=== PATIENT | female | born 1955 | race Caucasian/White ===

== ENCOUNTER 2018-07-07 17:27 | Emergency (ER) | payer BC, MEDICARE ==
--- NOTE | 2018-07-07 18:06 | Emergency Department Record ---
History of Present Illness - General Mode of Arrival: Ambulatory - History of Present Illness Onset/Timin -: Hour(s) Location: Face Place: Home Context: Accidental Associated Symptoms: None Treatments Prior to Arrival: Bandage - [place] Coma Scale Eye Response: (4) Open spontaneously Motor Response: (6) Obeys commands Verbal Response: (5) Oriented [place] Total: 15 - Related Data Patient Tetanus UTD (within 5 yrs): No <Jensen Campos - Last Filed: 07/07/18 18:04> - General Source: Patient Mode of Arrival: Ambulatory Limitations: No limitations - History of Present Illness Initial Commments: 63 yo female presents to ED for evaluation following a fall from a ladder, reports "I missed a step". Patient reports that she struck her head on a rung of the ladder resulting in a forehead laceration. Patient denies other injury on examination, and denies the use of anticoagulation medications. Patient denies neck injury, numbness, tingling, chest, abdomen, or back injury on examination. Patient denies health problems other than belepharospasms. -: Hour(s) Location: Face Place: Home Context: Accidental Associated Symptoms: None Treatments Prior to Arrival: Bandage - [place] Coma Scale Eye Response: (4) Open spontaneously Motor Response: (6) Obeys commands Verbal Response: (5) Oriented [place] Total: 15 <SHARAD BOATENG - Last Filed: 07/07/18 20:48> - General Chief Complaint: Laceration(s) Stated Complaint: LAC HEAD Time Seen by Provider: 07/07/18 17:54 - Related Data Home Medications Medication Instructions Recorded Confirmed Last Taken No Home Med [NO HOME MEDS] 07/07/18 07/07/18 Unknown Allergies Allergy/AdvReac Type Severity Reaction Status Date / Time No Known Drug Allergies Allergy Verified 07/07/18 17:47 Travel Screening - Travel/Exposure Within Last 30 Days Have you traveled within the last 30 days?: No - Travel/Exposure Within Last Year Have you traveled outside the [place] in the last year?: No - Additonal Travel Details Have you been exposed to anyone with a communicable illness?: No - Travel Symptoms Symptom Screening: None <Jensen Campos - Last Filed: 07/07/18 18:04> Review of Systems Constitutional: Denies: Chills, Fever, Malaise, Night sweats Eyes: Denies: Eye discharge, Eye pain ENT: Denies: Congestion, Ear pain, Epistaxis Respiratory: Denies: Cough, Dyspnea Cardiovascular: Denies: Chest pain, Dyspnea on exertion Endocrine: Denies: Fatigue, Heat or cold intolerance Gastrointestinal: Denies: Abdominal pain, Nausea, Vomiting Genitourinary: Denies: Incontinence, Retention Musculoskeletal: Denies: Arthralgia, Back pain, Gout, Joint swelling Skin: Denies: Bruising, Change in color Neurological: Reports: Headache. Denies: Abnormal gait, Confusion, Tingling Psychiatric: Denies: Anxiety Hematological/Lymphatic: Denies: Anemia, Blood Clots <SHARAD BOATENG - Last Filed: 07/07/18 20:48> Past Medical History - SOCIAL HISTORY Smoking Status: Current every day smoker Alcohol Use: Occasional Drug Use: None - RESPIRATORY Hx Respiratory Disorders: No - CARDIOVASCULAR Hx Cardio Disorders: No - NEURO Hx Neuro Disorders: No - GI Hx GI Disorders: No - Hx Genitourinary Disorders: No - ENDOCRINE Hx Endocrine Disorders: No - MUSCULOSKELETAL Hx Musculoskeletal Disorders: No - PSYCH Hx Psych Problems: No - HEMATOLOGY/ONCOLOGY Hx Hematology/Oncology Disorders: No <Jensen Campos - Last Filed: 07/07/18 18:04> Family Medical History Any Significant Family History?: No <Jensen Campos - Last Filed: 07/07/18 18:04> Physical Exam - General General Appearance: Alert, Oriented x3, Cooperative, Mild distress Limitations: No limitations - Head Head exam detail: Laceration, Other (3.5 curvilinear laceration to the forehead , bleeding controlled.). negative: Abrasion, Contusion, Guadarrama's sign, General tenderness, Hematoma - Eye Eye exam: Normal appearance. negative: Conjunctival injection, Periorbital swelling, Periorbital tenderness, Scleral icterus - ENT Ear exam: negative: Auricular hematoma, Auricular trauma Nasal Exam: negative: Active bleeding, Discharge, Dried blood, Foreign body Mouth exam: negative: Drooling, Laceration, Muffled voice, Tongue elevation - Neck Neck exam: Normal inspection. negative: Meningismus, Tenderness - Respiratory Respiratory exam: Normal lung sounds bilaterally. negative: Respiratory distress, Rhonchi, Stridor, Wheezes - Cardiovascular Cardiovascular Exam: Regular rate, Normal rhythm, Normal heart sounds - GI/Abdominal GI/Abdominal exam: Soft. negative: Rebound, Rigid, Tenderness - Rectal Rectal exam: Deferred - exam: Deferred - Extremities Extremities exam: Normal inspection. negative: Pedal edema, Tenderness - Back Back exam: Denies: CVA tenderness (R), CVA tenderness (L) - Neurological Neurological exam: Alert, Normal gait, Oriented X3 - Psychiatric Psychiatric exam: Normal affect, Normal mood - Skin Skin exam: Normal color. negative: Abrasion Type of lesion: negative: abrasion <SHARAD BOATENG - Last Filed: 07/07/18 20:48> Course Vital Signs 07/07/18 17:40 Temperature 99.2 F Pulse Rate 87 Respiratory 16 Rate Blood Pressure 171/91 Pulse Ox 96 <Jensen Campos - Last Filed: 07/07/18 18:04> Vital Signs 07/07/18 17:40 Temperature 99.2 F Pulse Rate 87 Respiratory 16 Rate Blood Pressure 171/91 Pulse Ox 96 - Reevaluation(s) Reevaluation #1: 07/07/18 18:10 Patient was seen and examined, will obtain CT imaging of the head to exclude FB or ICH. Will then perform laceration repair. Reevaluation #2: 07/07/18 20:45 CT Head: Frontal scalp laceration No acute intrcranial hemorrhage No radio-opaque FB present. Procedure Note: 3.5 cm curvi-linear laceration to the left forehead present, bleeding controlled. Wound was cleaned and prepped in sterile fashion, no residual FB identified on examination. Wound was anesthetized with 1.5 mL of 1% Lidocaine with epinephrine with good anesthesia, and the laceration was repaired with 5-0 Prolene (#10) sutures in interrupted fashion. Patient tolerated the procedure well without complications. Patient was updated on all results, bacitracin was applied to the wound, and the patient was instructed to return to the ED for suture removal in 7-10 days. Patient and her SO verbalize understanding of all instructions. <SHARAD BOATENG - Last Filed: 07/07/18 20:48> Disposition <Jensen Campos - Last Filed: 07/07/18 18:04> Disposition: Discharge Time of Disposition: 20:47 <SHARAD BOATENG - Last Filed: 07/07/18 20:48> Clinical Impression: Forehead laceration Qualifiers: Encounter type: initial encounter Qualified Code(s): S01.81XA - Laceration without foreign body of other part of head, initial encounter Disposition: Home, Self-Care Condition: (2) Stable Instructions: Laceration (ED) Additional Instructions: Return to ED if your symptoms worsen or if you have any concerns. Sutures out in 7-10 days. Follow-up with your family doctor in 3-5 days as directed. Forms: Patient Portal Access Quality - Blood Pressure Screening Does Patient Have Any of the Following: No Blood Pressure Classification: Hypertensive Reading Systolic Measurement: 171 Diastolic Measurement: 91 <Jensen Campos - Last Filed: 07/07/18 18:04> - Quality Measures Quality Measures: N/A - Blood Pressure Screening Does Patient Have Any of the Following: No Blood Pressure Classification: Pre-Hypertensive BP Reading Systolic Measurement: 168 Diastolic Measurement: 84 Screening for High Blood Pressure: < Pre-Hypertensive BP, F/U Documented > [ G8950] Pre-Hypertensive Follow-up Interventions: Referral to alternative/primary care provider. <SHARAD BOATENG - Last Filed: 07/07/18 20:48>
--- NOTE | 2018-07-09 09:25 | CT SCAN REPORT ---
EXAM: CT OF THE HEAD WITHOUT IV CONTRAST HISTORY: TRAUMA, CUT ON FOREHEAD. TECHNIQUE: Helical CT scan of the head was obtained without intravenous contrast. Hand dominance: Unknown. FINDINGS: No evidence of hemorrhage, extraaxial fluid collection, or major vessel infarction. The guerrero white matter differentiation is maintained. The ventricles are normal. The basal cisterns are patent. No mass effect or midline shift. The calvarium is intact. The paranasal sinuses and middle ear cavities are well aerated. The globes are symmetric. Left frontal scalp laceration is noted. IMPRESSION: 1. NO ACUTE INTRACRANIAL ABNORMALITY. 2. LEFT FRONTAL SCALP LACERATION. JOB NUMBER: [id number] [facility]
== END 2018-07-07 20:30 | disposition home or self-care (01) ==
LOC: ER 17:27
DX: S01.81XA Laceration without foreign body of other part of head, initial encounter (principal); W01.198A Fall on same level from slipping, tripping and stumbling with subsequent striking against other object, initial encounter; Y92.009 Unspecified place in unspecified non-institutional (private) residence as the place of occurrence of the external cause; F17.210 Nicotine dependence, cigarettes, uncomplicated
CPT/HCPCS: 12013; 70450; 99283; 99284

== ENCOUNTER 2018-07-16 13:53 | Emergency (ER) | payer MEDICARE ==
--- NOTE | 2018-07-16 14:03 | Emergency Department Record ---
History of Present Illness - General Chief Complaint: Suture removal Stated Complaint: SUTURE REMOVAL Time Seen by Provider: 07/16/18 13:54 Source: Patient Mode of arrival: Ambulatory Limitations: No limitations - History of Present Illness Initial Comments: The patient is here for suture removal. She denies any problems. Complaint: Suture/staple removal Onset/Timin -: Days(s) Initial Visit For: Laceration Returns Today for: Staple/stitch removal Symptoms Since Prior Visit: No new symptoms Associated Symptoms: None - Related Data Allergies Allergy/AdvReac Type Severity Reaction Status Date / Time No Known Drug Allergies Allergy Verified 07/16/18 13:59 Travel Screening - Travel/Exposure Within Last 30 Days Have you traveled within the last 30 days?: No - Travel/Exposure Within Last Year Have you traveled outside the [place] in the last year?: No - Additonal Travel Details Have you been exposed to anyone with a communicable illness?: No - Travel Symptoms Symptom Screening: None Review of Systems Constitutional: Denies: Chills, Fever Past Medical History - SOCIAL HISTORY Smoking Status: Current every day smoker Alcohol Use: None Drug Use: None - RESPIRATORY Hx Respiratory Disorders: No - CARDIOVASCULAR Hx Cardio Disorders: No - NEURO Hx Neuro Disorders: No - GI Hx GI Disorders: No - Hx Genitourinary Disorders: No - ENDOCRINE Hx Endocrine Disorders: No - MUSCULOSKELETAL Hx Musculoskeletal Disorders: No - PSYCH Hx Psych Problems: No - HEMATOLOGY/ONCOLOGY Hx Hematology/Oncology Disorders: No Family Medical History Any Significant Family History?: Yes Physical Exam - General General Appearance: Alert, Oriented x3, Cooperative, No acute distress - Head Head exam: Normocephalic. negative: Atraumatic, Normal inspection (There is a well healed mid forehead lac. The sutures were removed without difficulty.) Course Vital Signs 07/16/18 13:55 Temperature 98.2 F Pulse Rate 89 Respiratory 20 Rate Blood Pressure 168/87 Pulse Ox 96 Disposition Disposition: Discharge Clinical Impression: Visit for suture removal Disposition: Home, Self-Care Condition: (2) Stable Instructions: Stitches Removal (ED) Additional Instructions: Return to the ER for any problems. Forms: Patient Portal Access Time of Disposition: 14:03 Quality - Quality Measures Quality Measures: N/A - Blood Pressure Screening View Details: Yes Does Patient Have Any of the Following: No Blood Pressure Classification: Pre-Hypertensive BP Reading Systolic Measurement: 168 Diastolic Measurement: 87 Screening for High Blood Pressure: < Pre-Hypertensive BP, F/U Documented > [ G8950] Pre-Hypertensive Follow-up Interventions: Referral to alternative/primary care provider.
== END 2018-07-16 14:02 | disposition home or self-care (01) ==
LOC: ER 13:53
DX: Z48.02 Encounter for removal of sutures (principal); F17.210 Nicotine dependence, cigarettes, uncomplicated

== ENCOUNTER 2019-08-08 18:01 | Emergency (ER) | payer MEDICARE ==
[2019-08-08] MEDS ORDERED: KETOROLAC 30 MG/ML VIAL IM ONE (18:22)
--- NOTE | 2019-08-08 18:27 | Emergency Department Record ---
History of Present Illness - General Chief complaint: Pain Stated complaint: SHOULDER PAIN Time Seen by Provider: 08/08/19 18:17 Source: Patient Mode of Arrival: Ambulatory Limitations: No limitations - History of Present Illness Initial comments: The patient is here due to L shoulder pain for 3 days. The pain is sharp, stabbing and at times severe in the L shoulder mainly anteriorly. The pain is much worse with any movement or lifting or any ROM. The patient denies any neck pain, arm weakness, chest pain, SOB, sweating or nausea. The patient has no pain when NOT moving the L shoulder but it comes on significantly with any ROM. The pain does radiate down the arm at times. She denies any fall, trauma, injury, fever, chills, or back pain. MD Complaint: Extremity pain, Joint pain Onset/Timin -: Days(s) Location: Left History of Same: No Radiation: Distal Severity scale (1-10): 10 Quality: Sharp Consistency: Constant Improves with: Rest Worsens with: Exertion Associated Symptoms: Denies other symptoms - Related Data Home Medications Medication Instructions Recorded Confirmed Last Taken Calcium No.1/D3/B6/FA/B12/Aloe 1 tab PO DAILY 08/08/19 08/08/19 08/08/19 [Vitamin D3-Aloe 1,000 Unit Tab] Previous Rx's Medication Instructions Recorded Methylprednisolone [Medrol Dose 4 mg PO DAILY #1 tab.ds.pk 08/08/19 Pack] Allergies Allergy/AdvReac Type Severity Reaction Status Date / Time No Known Drug Allergies Allergy Verified 08/08/19 18:12 Travel Screening - Travel/Exposure Within Last 30 Days Have you traveled within the last 30 days?: No - Travel/Exposure Within Last Year Have you traveled outside the [place] in the last year?: No - Additonal Travel Details Have you been exposed to anyone with a communicable illness?: No - Travel Symptoms Symptom Screening: None Review of Systems Constitutional: Denies: Chills, Fever Eyes: Denies: Eye discharge ENT: Denies: Congestion Respiratory: Denies: Cough, Dyspnea Past Medical History - SOCIAL HISTORY Smoking Status: Current every day smoker Alcohol Use: Occasional Drug Use: None - RESPIRATORY Hx Respiratory Disorders: No - CARDIOVASCULAR Hx Cardio Disorders: No - NEURO Hx Neuro Disorders: No - GI Hx GI Disorders: No - Hx Genitourinary Disorders: No - ENDOCRINE Hx Endocrine Disorders: No Hx Diabetes: No Hx Thyroid Disease: No - MUSCULOSKELETAL Hx Musculoskeletal Disorders: No - PSYCH Hx Psych Problems: No - HEMATOLOGY/ONCOLOGY Hx Hematology/Oncology Disorders: No Family Medical History Any Significant Family History?: No Physical Exam - General General Appearance: Alert, Oriented x3, Cooperative, No acute distress - Head Head exam: Atraumatic, Normocephalic - Eye Eye exam: Normal appearance, PERRL - Neck Neck exam: Normal inspection, Full ROM. negative: Lymphadenopathy, Meningismus, Tenderness - Respiratory Respiratory exam: Normal lung sounds bilaterally. negative: Respiratory distress - Cardiovascular Cardiovascular Exam: Regular rate, Normal rhythm, Normal heart sounds - Extremities Extremities exam: Normal inspection (There is no L shoulder erythema, edema, or warmth. ), Normal capillary refill, Tenderness (The L shoulder is exquisitely tender to palpation of the anterior L shoulder. The pain also is easily reproducible with ANY range of motion of the L shoulder.). negative: Full ROM (The patient has decreased flexion, extension and abduction due to pain.), Joint swelling - Neurological Neurological exam: Alert, Normal gait, Oriented X3, Reflexes normal (The reflexes in the upper ext. are equal and 1+ bilaterally in all groups.). negative: Abnormal gait, Motor sensory deficit Course Vital Signs 08/08/19 18:05 Temperature 98.6 F Pulse Rate 90 Respiratory 20 Rate Blood Pressure 181/89 Pulse Ox 93 L Disposition Disposition: Discharge Clinical Impression: Calcific tendinitis Disposition: Home, Self-Care Condition: (2) Stable Instructions: Calcific Tendinitis (ED) Additional Instructions: Please take Tylenol for pain and use ice along with the Medrol Dose pack. Please wear the L arm sling for a week and do ROM exercises with the L shoulder in [address] Nelson for recheck in the [facility] and also your family doctor. Return to the ER for any worsening symptoms. Prescriptions: Methylprednisolone [Medrol Dose Pack] 4 mg PO DAILY #1 tab.ds.pk Referrals: [facility] [Provider Group] Forms: Patient Portal Access Time of Disposition: 19:12 Quality - Quality Measures Quality Measures: N/A - Blood Pressure Screening View Details: Yes Does Patient Have Any of the Following: No Blood Pressure Classification: Pre-Hypertensive BP Reading Systolic Measurement: 181 Diastolic Measurement: 89 Screening for High Blood Pressure: < Pre-Hypertensive BP, F/U Documented > [G8950] Pre-Hypertensive Follow-up Interventions: Referral to alternative/primary care provider.
--- NOTE | 2019-08-08 19:02 | RADIOLOGY REPORT ---
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 .
== END 2019-08-08 19:18 | disposition home or self-care (01) ==
LOC: ER 18:01
DX: M75.32 Calcific tendinitis of left shoulder (principal)
CPT/HCPCS: 96372; 99283; J1885